=== PATIENT | female | born 2000 | race American Indian/Alaskan Native ===

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

== ENCOUNTER 2024-06-13 21:43 | Emergency (ER) | payer OTHER ==
[2024-06-13 21:58] VITALS: BP 131/86; TEMP 98.5; BMI 33.3
[2024-06-13] MEDS ORDERED: ACETAMINOPHEN 500 MG TABLET (FP) ONE (23:42)
[2024-06-13] MEDS: ACETAMINOPHEN 500 MG TABLET (FP) PO ONE (23:45)
[2024-06-14] MEDS ORDERED: KETOROLAC TROMETHAMINE 15 MG/ML VIAL ONE (00:41)
[2024-06-14] MEDS ORDERED: CYCLOBENZAPRINE HCL 10 MG TABLET (FP) ONE (00:41)
[2024-06-14] MEDS: KETOROLAC TROMETHAMINE 15 MG/ML VIAL IM ONE (01:05)
[2024-06-14] MEDS: CYCLOBENZAPRINE HCL 10 MG TABLET (FP) PO ONE (01:05)
[2024-06-14] MEDS ORDERED: CYCLOBENZAPRINE HCL 5 MG TABLET PO SCH ×2 (01:21→10:00)
[2024-06-14 01:53] VITALS: PULSE 84; RESP 16
== END 2024-06-14 01:30 | disposition home or self-care (01) ==
LOC: JER 21:43
PROC: 3E0133Z Introduction of Anti-inflammatory into Subcutaneous Tissue, Percutaneous Approach (ICD-10-PCS; principal; 2024-06-13)
DX: M54.50 Low back pain, unspecified (principal); M54.6 Pain in thoracic spine; V43.52XA Car driver injured in collision with other type car in traffic accident, initial encounter; Y92.410 Unspecified street and highway as the place of occurrence of the external cause
CPT/HCPCS: 99284-25